=== PATIENT | male | born 1965 | race Caucasian/White ===

== ENCOUNTER 2017-04-28 11:40 | Day surgery (SDC) | payer MEDICARE, OTHER ==
[~2017-04-28] VITALS: Ht 188 cm; Wt 81.2 kg
[2017-04-28] MEDS ORDERED: CRESTOR20 MG PO (12:17)
[2017-04-28] MEDS ORDERED: LOPRESSOR50 MG PO (12:18)
[2017-04-28] MEDS ORDERED: NORCO 10-325 T1 EACH PO (12:18)
[2017-04-28] MEDS ORDERED: SINGULAIR10 MG PO (12:19)
[2017-04-28] MEDS ORDERED: TEGRETOL200 MG PO (12:19)
[2017-04-28] MEDS ORDERED: PROTONIX40 MG PO (12:19)
[2017-04-28] MEDS ORDERED: TRICOR145 MG PO (12:20)
[2017-04-28 21:59] LABS: HEMOGLOBIN 14.1 gm/dl (14.0-17.5); RED BLOOD COUNT 4.58 M/UL (4.20-5.50); WHITE BLOOD COUNT 9.3 K/UL (4.5-11.0)
[2017-04-28 22:09] LABS: BUN/CREATININE RATIO 14 (0-10)
[2017-04-29 04:00] LABS: RED BLOOD COUNT 4.26 M/UL (4.20-5.50); WHITE BLOOD COUNT 10.8 K/UL (4.5-11.0)
[2017-04-29] MEDS ORDERED: ASPIRIN325 MG PO (13:16)
[2017-04-29] MEDS ORDERED: VITAMIN C 500500 MG PO (13:17)
[2017-04-29] MEDS ORDERED: CLINDAMYCIN HC300 MG PO (13:18)
[2017-04-29] MEDS ORDERED: PERCOCET 5-3251 EACH PO (13:24)
[2017-04-29] MEDS ORDERED: IBUPROFEN800 MG PO (13:26)
== END 2017-04-29 14:35 | disposition home or self-care (01) ==
LOC: OR 11:40 → CCU 20:30 → OR 04-29 14:35
PROVIDERS: Family Medicine; Podiatrist Foot & Ankle Surgery
PROC: 0SBG0ZZ Excision of Left Ankle Joint, Open Approach (ICD-10-PCS; 2017-04-28)
PROC: 0SBG4ZZ Excision of Left Ankle Joint, Percutaneous Endoscopic Approach (ICD-10-PCS; principal; 2017-04-28 13:15)
PROC: 0SQG0ZZ Repair Left Ankle Joint, Open Approach (ICD-10-PCS; 2017-04-28 13:15)
DX: M25.372 Other instability, left ankle (principal); R60.0 Localized edema; I10 Essential (primary) hypertension; E78.2 Mixed hyperlipidemia; K21.9 Gastro-esophageal reflux disease without esophagitis; G40.909 Epilepsy, unspecified, not intractable, without status epilepticus; M54.5 Low back pain; G89.29 Other chronic pain; Z98.1 Arthrodesis status; Z87.891 Personal history of nicotine dependence; Z79.899 Other long term (current) drug therapy; Z88.0 Allergy status to penicillin
CPT/HCPCS: 36415; 80053; 82550; 82553; 83735; 84484; 85027; 93005; J1200; J2001; J2250; J2405; J2795; J3010; J3370; J7050; J7120

== ENCOUNTER 2017-04-30 13:16 | Emergency (ER) | payer MEDICARE, OTHER ==
[~2017-04-30 13:16] MED LIST: ASPIRIN325 MG PO; CLINDAMYCIN HC300 MG PO; CRESTOR20 MG PO; IBUPROFEN800 MG PO; LOPRESSOR50 MG PO; NORCO 10-325 T1 EACH PO; PERCOCET 5-3251 EACH PO; PROTONIX40 MG PO; SINGULAIR10 MG PO; TEGRETOL200 MG PO; TRICOR145 MG PO; VITAMIN C 500500 MG PO
== END 2017-04-30 13:17 | disposition left against medical advice (07) ==
LOC: ER1 13:16
DX: Z53.21 Procedure and treatment not carried out due to patient leaving prior to being seen by health care provider (principal)

== ENCOUNTER 2020-09-23 21:37 | Emergency (ER) | payer MEDICARE, OTHER ==
[~2020-09-23 21:37] MED LIST changes: +ADULT LOW DOSE81 MG PO; +AMLODIPINE BESY10 MG PO; +ASPIRIN CHEWABL81 MG PO; +CARAFATE1 GM PO; +CIPRO500 MG PO; +COLACE 100MG C100 MG PO; +CYCLOBENZAPRINE10 MG PO; +CYCLOBENZAPRINE5 MG PO; +FLAGYL500 MG PO; +FLUTICASONE SPRAY; +IBU800 MG PO; +IBUPROFEN600 MG PO; +IMDUR ER TAB 3030 MG PO; +MOBIC15 MG PO; +NEURONTIN600 MG PO; +NITROGLYCERIN0.4 MG SL; +NORFLEX 100 MG100 MG PO; +NYSTATIN1 EAC9 TOP; +PERCOCET 5/325 T1 EA PO; +PREDNISONE 50 M50 MG PO; +TIAGABINE HCL4 MG PO; +TRAZODONE HCL100 MG PO; +VENTOLIN HFA 66.7 GM INH; +VITAMIN C500 M3 PO; +Voltaren Gel 1 % TOP; +ZOFRAN4 MG PO
[2020-09-23 22:40] LABS: HEMOGLOBIN 13.2 gm/dl (14.0-17.5); RED BLOOD COUNT 4.39 M/UL (4.20-5.50); WHITE BLOOD COUNT 7.3 K/UL (4.5-11.0)
[2020-09-23 22:58] LABS: BUN/CREATININE RATIO 16 (0-10)
[2020-12-24] MEDS ORDERED: CRESTOR40 MG PO (10:26)
[2021-01-02] MEDS ORDERED: FISH OIL 1,0001 EACH PO (06:47)
[2021-01-02] MEDS ORDERED: HYDROCODON-ACE1 EAC4 PO (07:35)
== END 2020-09-24 01:25 | disposition home or self-care (01) ==
LOC: ER1 21:37
PROVIDERS: Family Medicine
DX: R10.9 Unspecified abdominal pain (principal); E78.5 Hyperlipidemia, unspecified; I10 Essential (primary) hypertension; Z87.891 Personal history of nicotine dependence; Z88.0 Allergy status to penicillin; Z87.442 Personal history of urinary calculi
CPT/HCPCS: 36415; 80053; 81001; 83690; 85025; 96374; 99284; J1885; Q9967

== ENCOUNTER 2020-11-07 16:00 | Emergency (ER) | payer MEDICARE, OTHER ==
[2020-12-24] MEDS ORDERED: CRESTOR40 MG PO (10:26)
[2021-01-02] MEDS ORDERED: FISH OIL 1,0001 EACH PO (06:47)
[2021-01-02] MEDS ORDERED: HYDROCODON-ACE1 EAC4 PO (07:35)
== END 2020-11-07 17:08 | disposition home or self-care (01) ==
LOC: ER1 16:00
DX: M25.542 Pain in joints of left hand (principal); I10 Essential (primary) hypertension; E78.5 Hyperlipidemia, unspecified; Z79.82 Long term (current) use of aspirin; Z88.0 Allergy status to penicillin; Z87.891 Personal history of nicotine dependence
CPT/HCPCS: 96372; 99283; J1885

== ENCOUNTER → 2020-11-08 | Outpatient (CLI) | payer MEDICARE, OTHER ==
[~2020-11-08] MED LIST changes: +CRESTOR40 MG PO; +FISH OIL 1,0001 EACH PO; +HYDROCODON-ACE1 EAC4 PO
== END ==
LOC: RAD 15:43
DX: M79.642 Pain in left hand (principal)
CPT/HCPCS: 73130

== ENCOUNTER → 2020-11-14 | Outpatient (CLI) | payer MEDICARE, OTHER | LOC: KOH-I 09:17 | DX: M54.5 Low back pain (principal); Z47.89 Encounter for other orthopedic aftercare; M51.36 Other intervertebral disc degeneration, lumbar region | CPT/HCPCS: 72110 ==

== ENCOUNTER → 2020-12-24 | Outpatient (CLI) | payer MEDICARE, OTHER ==
[2020-12-24 10:14] LABS: HEMOGLOBIN 12.8 gm/dl (14.0-17.5); RED BLOOD COUNT 4.35 M/UL (4.20-5.50); WHITE BLOOD COUNT 5.2 K/UL (4.5-11.0)
[2020-12-24 10:38] LABS: BUN/CREATININE RATIO 18 (0-10)
== END ==
LOC: OPSV2 09:20
PROVIDERS: Orthopaedic Surgery
DX: Z01.812 Encounter for preprocedural laboratory examination (principal); M65.312 Trigger thumb, left thumb
CPT/HCPCS: 36415; 80048; 85025

== ENCOUNTER → 2021-01-02 | Day surgery (SDC) | payer MEDICARE, OTHER ==
[~2021-01-02] VITALS: Ht 185.4 cm; Wt 91.6 kg
== END | disposition home or self-care (01) ==
LOC: OR 12-12 11:45
PROVIDERS: Orthopaedic Surgery
PROC: 0LN80ZZ Release Left Hand Tendon, Open Approach (ICD-10-PCS; principal; 2021-01-02 07:30)
DX: M65.312 Trigger thumb, left thumb (principal); I10 Essential (primary) hypertension; E78.5 Hyperlipidemia, unspecified; K21.9 Gastro-esophageal reflux disease without esophagitis; I25.10 Atherosclerotic heart disease of native coronary artery without angina pectoris; G89.29 Other chronic pain; I49.9 Cardiac arrhythmia, unspecified; Z88.0 Allergy status to penicillin; Z79.82 Long term (current) use of aspirin; Z79.1 Long term (current) use of non-steroidal anti-inflammatories (NSAID); Z79.899 Other long term (current) drug therapy; Z87.891 Personal history of nicotine dependence
CPT/HCPCS: J0690; J1100; J2001; J2250; J2405; J2704; J3010; J7120

== ENCOUNTER 2022-01-24 15:04 | Emergency (ER) | payer MEDICARE, OTHER, MEDICAID ==
[2022-01-24] MEDS ORDERED: VIBRAMYCIN100 MG PO (15:55)
[2022-01-24] MEDS ORDERED: CLINDAMYCIN HC300 MG PO (15:55)
== END 2022-01-24 16:40 | disposition home or self-care (01) ==
LOC: ER1 15:04
DX: S91.051A Open bite, right ankle, initial encounter (principal); I10 Essential (primary) hypertension; W54.0XXA Bitten by dog, initial encounter; Z23 Encounter for immunization
CPT/HCPCS: 90471; 90715; 99283

== ENCOUNTER → 2022-04-08 | Outpatient (CLI) | payer MEDICARE, OTHER ==
[~2022-04-08] MED LIST changes: +VIBRAMYCIN100 MG PO
== END ==
LOC: CT 10:47 → KOH-I 04-22 13:30
DX: F17.210 Nicotine dependence, cigarettes, uncomplicated (principal); R41.3 Other amnesia
CPT/HCPCS: 70470; 71271; Q9967